=== PATIENT | female | born 1935 ===

== ENCOUNTER 2017-03-22 11:19 | Inpatient (IN) | payer MEDICARE, MEDICAID ==
[2017-03-22 11:25] VITALS: BMI 35.2
[2017-03-22 12:06] LABS: DRAW SITE RADIAL
[2017-03-22 12:12] LABS: BASO % 0.5 % (0.0-2.0); EOS # 0.1 K/uL (0.0-0.7); EOS % 1.3 % (0.0-4.0); HEMATOCRIT 33.4 % (34.0-47.0); LYMPH # 1.5 K/uL (1.0-4.3); LYMPH % 17.9 % (20.0-40.0); MEAN CELL VOLUME 103.7 fL (81.0-99.0); MEAN CORPUSCULAR HEMOGLOBIN 34.1 pg (27.0-31.0); MEAN CORPUSCULAR HGB CONC 32.8 g/dL (33.0-37.0); MEAN PLATELET VOLUME 8.4 fL (7.2-11.7); MONO # 0.6 K/uL (0.0-0.8); MONO % 7.1 % (0.0-10.0); RED CELL DISTRIBUTION WIDTH 12.8 % (11.5-14.5); WHITE BLOOD COUNT 8.2 K/uL (4.8-10.8)
[2017-03-22 12:20] LABS: INR 1.2
--- NOTE | 2017-03-22 12:20 | C.PDOC ---
History Of Present Illness Patient brought to ED by her sons for evaluation of SOB and nausea. Patient denies chest pain, but does admit to CP 3 days ago. History limited due to clinical condition and sons are poor historians. Time Seen by Provider: 03/22/17 11:36 Chief Complaint (Nursing): Abdominal Pain History Per: Patient, Family History/Exam Limitations: clinical condition Severity: Moderate Past Medical History Reviewed: Historical Data, Nursing Documentation, Vital Signs Vital Signs: Last Vital Signs Temp 98.1 F 03/26/17 00:00 Pulse 69 03/26/17 16:00 Resp 20 03/26/17 00:00 BP 156/71 H 03/26/17 10:22 Pulse Ox 98 03/26/17 00:00 - Medical History PMH: HTN Surgical History: Pacemaker Family History: States: No Known Family Hx - Social History Hx Alcohol Use: No Hx Substance Use: No - Immunization History Hx Tetanus Toxoid Vaccination: (UNK) Hx Influenza Vaccination: (UNK) Hx Pneumococcal Vaccination: (UNK) Review Of Systems Except As Marked, All Systems Reviewed And Found Negative. Cardiovascular: Positive for: Chest Pain. Negative for: Palpitations Respiratory: Positive for: Shortness of Breath, SOB with Excertion Gastrointestinal: Positive for: Nausea. Negative for: Abdominal Pain Genitourinary: Negative for: Dysuria Physical Exam - Physical Exam Appears: Non-toxic, In Acute Distress (in moderate respiratory distress) Skin: Warm, Dry Oral Mucosa: Moist Cardiovascular: Rhythm Regular Respiratory: Accessory Muscle Use (mild to moderate), Rales (diffuse rales B/L ) , No Rhonchi, No Wheezing Gastrointestinal/Abdominal: Normal Exam, Bowel Sounds, Soft, No Tenderness Extremity: Pedal Edema (+2 pitting edema B/L LEs), No Calf Tenderness Pulses: Left Dorsalis Pedis: Normal, Right Dorsalis Pedis: Normal ED Course And Treatment - Laboratory Results Result Diagrams: 03/26/17 14:14 03/26/17 14:14 ECG: Interpreted By Me, Viewed By Me (atrial paced rhythm 80 bpm, left axis deviation, no acute ST/T wave changes) ECG Interpretation: Abnormal O2 Sat by Pulse Oximetry: 78 (RA) Pulse Ox Interpretation: Abnormal - Radiology CXR: Interpreted by Me, Viewed By Me (B/L pulmonary vascular congestion, AICD in place) Progress Note: Patient placed on Bipap emergently, and ABG drawn by me. Blood work, CXR, EKG, UA ordered. Patient given SL nitroglycerin and IV Lasix. Reevaluation Time: 12:00 Reassessment Condition: Improved (Patient reassessed, is resting comfortably and states her breathing is better. Currently on Bipap, Pox 95% on FiO2 40%. No current accessory muscle use, (+) rales B/L. Small amount duiresis- approx 30ml urine.) - Physician Consult Information Physician Contacted: Jd Werner Outcome Of Conversation: Discussed patient with Dr. Werner, agrees with hospitalist admission for chf exacerbation, dyspnea. PMD Dr. Mathews, Cardioloy Dr. Gibbs. Repeat ABG pending. Disposition - Disposition Disposition: HOSPITALIZED Disposition Time: 13:24 Condition: FAIR - Clinical Impression Clinical Impression: CHF exacerbation, Dyspnea Decision To Admit - Pt Status Changed To: Hospital Disposition Of: Inpatient - Admit Certification Admit to Inpatient:: After my assessment, the patient will require hospitalization for at least two midnights. This is because of the severity of symptoms shown, intensity of services needed, and/or the medical risk in this patient being treated as an outpatient. - InPatient: Physician Admission Certification:: see notes - . Bed Request Type: Telemetry Admitting Physician: Jd Werner Patient Diagnosis: CHF exacerbation, Dyspnea
[2017-03-22 12:30] LABS: POTASSIUM 4.9 mmol/L (3.6-5.2)
[2017-03-22 12:32] LABS: BILIRUBIN,TOTAL 0.9 mg/dL (0.2-1.3)
[2017-03-22 12:33] LABS: ALB/GLOB RATIO 0.9 (1.0-2.1); CALCIUM 9.1 mg/dl (8.6-10.4); TOTAL PROTEIN 6.9 g/dL (6.3-8.3)
[2017-03-22 12:44] LABS: TROPONIN I 0.048 ng/mL (0.00-0.120)
[2017-03-22 14:02] LABS: THYROID STIMULATING HORMONE 4.69 mIU/L (0.46-4.68)
--- NOTE | 2017-03-22 14:09 | RAD ---
PROCEDURE: CHEST RADIOGRAPH, 1 VIEW HISTORY: SOB COMPARISON: None available. FINDINGS: LUNGS: Perihilar bronchovascular marking prominence is most conspicuous in the left perihilar location. Left perihilar additional parenchymal pathology is not excluded. The infrahilar bronchovascular markings are also likely prominent. Very venous congestion is inferred. Bilateral pleural effusions inferred bibasilar compressive atelectasis is noted. Of course, underlying bibasilar concomitant infiltrates are not excluded. There are several AICD like leads in place a discrete the battery pack is not visualized on this exam. Coalescing/coiling leads are seen projecting of the left mid to lower lung zone. PLEURA: Bilateral pleural effusion in the right is 1/4 to 1/3 of the height of the right hemithorax that on the left is approximately 1/2 the height of the left hemithorax. CARDIOVASCULAR: Cardiomegaly OSSEOUS STRUCTURES: No significant abnormalities. VISUALIZED UPPER ABDOMEN: Normal. OTHER FINDINGS: IMPRESSION: Cardiomegaly with pulmonary venous congestion/a bilateral pleural effusions findings consistent with congestive heart failure. Other findings as above. Correlate clinically and follow-up recommended
[2017-03-22 14:18] LABS: ABG ALLEN TEST POS; ARTERIAL BLOOD HGB O2 SAT 95.1 % (95.0-98.0); CARBOXYHEMOGLOBIN 2.6 % (0.5-1.5); DRAW SITE RRA; HHB 1.6 % (0.0-5.0); METHEMOGLOBIN 0.7 % (0.0-3.0)
[2017-03-22] MEDS ORDERED: Iodixanol 320 MG/ML 100 ML BOTTLE IV ONE (16:27)
[2017-03-22] MEDS ORDERED: (Novolin R) Insulin Human Regular 100 units/ml vial ONE (17:55)
[2017-03-22] MEDS: (Novolin R) Insulin Human Regular 100 units/ml vial SC SCH ×2 (17:58→21:29)
--- NOTE | 2017-03-22 17:59 | CT ---
CTA chest PE protocol Indication: Shortness of breath Technique: Contiguous axial images were obtained through the chest with intravenous contrast enhancement. Sagittal and coronal reconstructions were generated and reviewed. This CT exam was performed using 1 or more of the falling dose reduction techniques: Automated exposure control, adjustment of the MAA and/or kV according to patient size, and/or use of iterative reconstruction technique. IV Contrast: 100 cc Visipaque 320 Radiation dose (DLP): 488.00 MGy-cm. Comparison: Chest x-ray performed 03/22/17 Findings: Visualized portions of the inferior thyroid gland heterogeneous, enlarged, and nodular. The mediastinal and hilar vascular structures appear within normal limits. Cardiomegaly. Trace pericardial effusion. Three lead AICD. Pacer pack resides within the left upper quadrant seen on comb capper view. No large central or segmental pulmonary embolus evident. Moderate right and small left pleural effusions and associated consolidations. No pneumothorax. Small hiatal hernia. Limited visualized portions of the upper abdomen appear grossly unremarkable. Degenerative changes. Impression: Heterogeneous, enlarged, and nodular appearance of the included portions inferior thyroid gland. Recommend dedicated thyroid ultrasound for further evaluation. Cardiomegaly. Trace pericardial effusion. Three lead AICD. Pacer pack resides within the left upper quadrant seen on comb capper view. No large central or segmental pulmonary embolus evident. Moderate right and small left pleural effusions and associated consolidations.
--- NOTE | 2017-03-22 18:01 | CP.PCM.HP ---
<Vinod Mireles - Last Filed: 03/22/17 21:20> History of Present Illness - History of Present Illness History of Present Illness: CC : Shortness of breath, abdominal pain and nausea HPI: Patient is a 82 year old female with Pmhx of dilated cardimyopathy, CHF, HTN, DM, hyperthyroidism who presents to the ED with complaints of abdominal pain, shortness of breath and nausea that started this morning. Patient's son reports that patient took her morning medications but thereafter vomited due to difficulty breathing. Patient reports that she had been experiencing intermittent chest pain 3-4 days prior to this episode, rating the pain an 8/ 10. Patient admits to orthopnea, nocturnal cough, fatigue, chest pain, nausea, vomiting, but denies fever, chills, diarrhea, constipation, recent travels, recent sickness. PMD: Dr. Mathews Manager Planning: Dr. Gibbs PMHx: Dilated cardiomyopathy, HTN, CHF, DM, hyperthyroidism PSHx: Pacemaker FHx:None Medications: * Febuxostat 40mg PO daily * Coreg 12.5 mg PO daily * Furosemide 40mg PO daily * Aspirin 81mg po daily * Methimazole 10mg PO daily * Entresto 1 TAB PO BID * Januvia 100mg PO daily * Glimepiride 4mg PO daily Allergies: Penicillin Social Hx: Lives with son, former smoker (1-2 cigarettes per day 50 years ago), denies ETOH and illicit drug use Medications given in the ER: Furosemide 40mg IV stat and Pepcid 20mg IV stat Present on Admission - Present on Admission Any Indicators Present on Admission: No Review of Systems - Review of Systems Systems not reviewed;Unavailable: Respiratory Distress - Constitutional Constitutional: Fatigue, Weakness. absent: Chills, Fever, Headache - EENT Eyes: absent: Blurred Vision, Change in Vision Nose/Mouth/Throat: absent: Nasal Congestion - Cardiovascular Cardiovascular: Chest Pain, Dyspnea on Exertion, Orthopnea, Palpitations, Paroxysmal Nocturnal Dyspnea. absent: Edema, Leg Edema - Respiratory Respiratory: Cough, Dyspnea, Dyspnea on Exertion, Chest Congestion. absent: Hemoptysis - Gastrointestinal Gastrointestinal: Nausea, Vomiting. absent: Diarrhea - Genitourinary Genitourinary: absent: Pyuria, Urinary Frequency, Urinary Urgency - Musculoskeletal Musculoskeletal: absent: Muscle Cramps, Muscle Weakness - Neurological Neurological: Weakness. absent: Dizziness, Headaches - Endocrine Endocrine: Fatigue, Palpitations Past Patient History - Past Social History Smoking Status: Former Smoker - CARDIAC Hx Hypertension: Yes Hx Pacemaker: Yes - PSYCHIATRIC Hx Substance Use: No - SURGICAL HISTORY Other/Comment: Pacemaker - ANESTHESIA Hx Anesthesia: Yes Hx Anesthesia Reactions: No Meds Allergies/Adverse Reactions: Allergies Allergy/AdvReac Type Severity Reaction Status Date / Time Penicillins Allergy Verified 03/22/17 11:23 Physical Exam - Constitutional Appears: No Acute Distress - Head Exam Head Exam: NORMAL INSPECTION, NORMOCEPHALIC - Eye Exam Eye Exam: EOMI, Normal appearance - ENT Exam ENT Exam: Mucous Membranes Moist, Normal Exam - Respiratory Exam Respiratory Exam: Rales, Wheezes - Cardiovascular Exam Cardiovascular Exam: REGULAR RHYTHM, +S1, +S2 - GI/Abdominal Exam GI & Abdominal Exam: Normal Bowel Sounds, Soft - Extremities Exam Extremities exam: Positive for: normal capillary refill, normal inspection. Negative for: pedal edema - Neurological Exam Neurological exam: Alert - Psychiatric Exam Psychiatric exam: Normal Affect, Normal Mood - Skin Skin Exam: Dry, Normal Color, Warm Results - Vital Signs Recent Vital Signs: Last Vital Signs Temp 97.6 F 03/22/17 13:16 Pulse 70 03/22/17 14:51 Resp 16 03/22/17 14:51 BP 156/66 H 03/22/17 14:52 Pulse Ox 97 03/22/17 14:51 - Labs Result Diagrams: 03/22/17 12:00 03/22/17 12:00 Labs: Laboratory Results - last 24 hr 03/22/17 03/22/17 14:14 17:50 Puncture Site Rra pCO2 60 H pO2 82 HCO3 25.9 ABG pH 7.29 L ABG Total CO2 30.7 H ABG O2 Saturation 98.3 H ABG Base Excess 1.3 ABG Hemoglobin 10.8 L ABG Carboxyhemoglobin 2.6 H POC ABG HHb (Measured) 1.6 ABG Methemoglobin 0.7 Maurizio Test Pos A-a O2 Difference 128.0 Respiratory Index 1.6 Hgb O2 Saturation 95.1 FiO2 40.0 Inspiratory BiPAP 12 Expiratory BiPAP 6 POC Glucose (mg/dL) 154 H Assessment & Plan (1) Acute congestive heart failure Assessment and Plan: Manager Planning, Dr. Grupo Marquez consulted --> Help appreciated F/u Echocardiogram Chest X-ray: Cardiomegaly with pulmonary venous congestion/ bilateral pleural effusions Furosemide 60mg IV Q12H Bipap: 08/29 BNP: 15,1000 SUE 1 (Negative); SUE 2 ( Positive at 0.2190); F/u SUE 3 Furosemide 60mg IV Q12H Weigh daily Monitor Input and output Low salt diet Status: Acute (2) Shortness of breath Assessment and Plan: Manager Planning, Dr. Grupo Marquez consulted --> Help appreciated Chest X-ray: Cardiomegaly with pulmonary venous congestion/ bilateral pleural effusions CT chest to r/o PE: Heterogenous, enlarged and nodular appearance of the included portions inferior thyroid gland. Moderate right and small left pleural effusions and associated consolidation. CT abdomen and pelvis: No significant acute findings f/u Venous duplex scan B/L : F/U echocardiogram Furosemide 60mg IV Q12H Bipap: 08/29 Status: Acute (3) Dilated cardiomyopathy Assessment and Plan: Manager Planning, Dr. Grupo Marquez consulted --> Help appreciated F/u Echocardiogram Status: Chronic (4) HTN (hypertension) Assessment and Plan: Lisinopril 2.5mg PO daily Status: Chronic (5) Diabetes mellitus Assessment and Plan: Insulin sliding Scale Accuchecks Low carbohydrate diet F/U HgbA1C Status: Chronic (6) Hyperthyroidism Assessment and Plan: Methimazole 10mg Po daily F/u TSH, free T4 Status: Chronic (7) Prophylactic measure Assessment and Plan: Pepcid 20mg PO BID Lovenox 68mg SC Q12H SCD Status: Acute <Jd Werner H - Last Filed: 03/23/17 07:52> Results - Vital Signs Recent Vital Signs: Last Vital Signs Temp 97.6 F 03/23/17 04:00 Pulse 71 03/23/17 06:01 Resp 20 03/23/17 04:00 BP 160/69 H 03/23/17 04:00 Pulse Ox 96 03/23/17 04:00 - Labs Result Diagrams: 03/23/17 06:18 03/22/17 12:00 Labs: Laboratory Results - last 24 hr 03/22/17 03/22/17 03/22/17 14:14 17:50 18:42 WBC RBC Hgb Hct MCV MCH MCHC RDW Plt Count MPV Neut % (Auto) Lymph % (Auto) [place] % (Auto) Eos % (Auto) Baso % (Auto) Neut # Lymph # [place] # Eos # Baso # Puncture Site Rra pCO2 60 H pO2 82 HCO3 25.9 ABG pH 7.29 L ABG Total CO2 30.7 H ABG O2 Saturation 98.3 H ABG Base Excess 1.3 ABG Hemoglobin 10.8 L ABG Carboxyhemoglobin 2.6 H POC ABG HHb (Measured) 1.6 ABG Methemoglobin 0.7 Maurizio Test Pos A-a O2 Difference 128.0 Respiratory Index 1.6 Hgb O2 Saturation 95.1 FiO2 40.0 Inspiratory BiPAP 12 Expiratory BiPAP 6 POC Glucose (mg/dL) 154 H Total Creatine Kinase 38 CK-MB (Mass) 1.74 Troponin I, Quant 0.2190 H* 03/22/17 03/23/17 03/23/17 21:11 00:30 06:17 WBC RBC Hgb Hct MCV MCH MCHC RDW Plt Count MPV Neut % (Auto) Lymph % (Auto) [place] % (Auto) Eos % (Auto) Baso % (Auto) Neut # Lymph # [place] # Eos # Baso # Puncture Site pCO2 pO2 HCO3 ABG pH ABG Total CO2 ABG O2 Saturation ABG Base Excess ABG Hemoglobin ABG Carboxyhemoglobin POC ABG HHb (Measured) ABG Methemoglobin Maurizio Test A-a O2 Difference Respiratory Index Hgb O2 Saturation FiO2 Inspiratory BiPAP Expiratory BiPAP POC Glucose (mg/dL) 140 H 108 Total Creatine Kinase 33 CK-MB (Mass) 1.46 Troponin I, Quant 0.1600 H* 03/23/17 06:18 WBC 6.9 RBC 3.13 L Hgb 10.6 L Hct 32.4 L MCV 103.6 H MCH 33.9 H MCHC 32.7 L RDW 12.6 Plt Count 162 MPV 8.4 Neut % (Auto) 75.0 Lymph % (Auto) 9.6 L [place] % (Auto) 13.4 H Eos % (Auto) 1.7 Baso % (Auto) 0.3 Neut # 5.2 Lymph # 0.7 L [place] # 0.9 H Eos # 0.1 Baso # 0.0 Puncture Site pCO2 pO2 HCO3 ABG pH ABG Total CO2 ABG O2 Saturation ABG Base Excess ABG Hemoglobin ABG Carboxyhemoglobin POC ABG HHb (Measured) ABG Methemoglobin Maurizio Test A-a O2 Difference Respiratory Index Hgb O2 Saturation FiO2 Inspiratory BiPAP Expiratory BiPAP POC Glucose (mg/dL) Total Creatine Kinase CK-MB (Mass) Troponin I, Quant Attending/Attestation - Attestation I have personally seen and examined this patient.: Yes I have fully participated in the care of the patient.: Yes I have reviewed all pertinent clinical information: Yes Notes (Text): Medical attending: Patient was seen and examined by me, agrees the above note by medical photographer. The patient was seen in ER bed 12 with the medical photographer. She was awake and alert she was following some commands and answering questions. Her family members were present and helped with translation. The family explained to me that she has not been walking for about a month now according to the family the patient has some sort of cancer they think it's a lung cancer that the patient has opted did not have any treatment for. Per review of the chest x-ray she has a lot of venous congestion, she also has AICD which suggests that she probably has a low ejection fraction as well from what I understand her leaf sucker operator does not come to [facility]. I tried to reach out to her PMD, Dr. Mathews who the office explains is currently not available. On exam she does have some bilateral Rales and rhonchi it's particularly at the bases of the lungs, she also has this palpable mass left upper quadrant of her abdomen this is surgical scar right on top of that mass. She doesn't have any tenderness there So because the shortness of breath and reports of chest pain earlier before she came to the hospital were negative chest abdomen and pelvis with contrast study to assess for potential pulmonary embolism and/or some type of malignancy that' s contributing to the venous congestion. Also this may give us more information with regards to the palpable abdominal mass on exam The patient will be on Lasix IV, tomorrow if she's feeling better will add back on the beta zoila. She needs to be on a low dose GREGORY inhibitor, statin, aspirin as well. We'll watch her on telemetry. She will need a repeat chest x- ray in the morning to see if there is any improvement with Lasix thank you Jd Werner
--- NOTE | 2017-03-22 18:26 | CT ---
PROCEDURE: CT Abdomen and Pelvis with contrast HISTORY: CHF exacerbation, dyspnea COMPARISON: None. TECHNIQUE: Contrast dose: 90 cc Omnipaque 300 Radiation dose: Total exam DLP = mGy-cm. This CT exam was performed using one or more of the following dose reduction techniques: Automated exposure control, adjustment of the mA and/or kV according to patient size, and/or use of iterative reconstruction technique. FINDINGS: LOWER THORAX: Bilateral pleural effusions and compressive atelectasis better visualized on the recent CT angiogram ( March 22, 2017.) small hiatal hernia also identified. LIVER: Unremarkable. No gross lesion or ductal dilatation. GALLBLADDER AND BILE DUCTS: Unremarkable. PANCREAS: Unremarkable. No gross lesion or ductal dilatation. SPLEEN: Unremarkable. ADRENALS: Unremarkable. No mass. KIDNEYS AND URETERS: Unremarkable. No hydronephrosis. No solid mass. Incidental finding(s): Simple cyst upper pole right kidney 12 x 26 mm. VASCULATURE: Unremarkable. No aortic aneurysm. BOWEL: Unremarkable. No obstruction. No gross mural thickening. APPENDIX: Normal appendix. PERITONEUM: Unremarkable. No free fluid. No free air. LYMPH NODES: Unremarkable. No enlarged lymph nodes. BLADDER: Air identified within the urinary bladder likely related to instrumentation. There are no abnormalities to suggest vesico enteric or vesico vaginal fistula. REPRODUCTIVE: Partially calcified, a expected appearance postmenopausal uterus. BONES: No acute fracture. Scoliosis, secondary degenerative change at multiple levels. OTHER FINDINGS: Rectus muscle/anterior abdominal wall hernia. The hernia contains fat only without evidence of bowel within the hernia sac. IMPRESSION: No significant or acute findings to account for/ related to the clinical presentation. Additional benign and/or incidental findings described above.
[2017-03-22] MEDS: Enoxaparin 80 mg Syringe SC SCH (21:39)
[2017-03-23 06:36] LABS: BASO % 0.3 % (0.0-2.0); EOS # 0.1 K/uL (0.0-0.7); EOS % 1.7 % (0.0-4.0); HEMATOCRIT 32.4 % (34.0-47.0); LYMPH # 0.7 K/uL (1.0-4.3); LYMPH % 9.6 % (20.0-40.0); MEAN CELL VOLUME 103.6 fL (81.0-99.0); MEAN CORPUSCULAR HEMOGLOBIN 33.9 pg (27.0-31.0); MEAN CORPUSCULAR HGB CONC 32.7 g/dL (33.0-37.0); MEAN PLATELET VOLUME 8.4 fL (7.2-11.7); MONO # 0.9 K/uL (0.0-0.8); MONO % 13.4 % (0.0-10.0); PLATELET COUNT 162 K/uL (130-400); RED CELL DISTRIBUTION WIDTH 12.6 % (11.5-14.5); WHITE BLOOD COUNT 6.9 K/uL (4.8-10.8)
[2017-03-23 08:02] LABS: THYROID STIMULATING HORMONE 3.76 mIU/L (0.46-4.68)
[2017-03-23 08:04] LABS: BILIRUBIN,TOTAL 0.9 mg/dL (0.2-1.3)
[2017-03-23 08:05] LABS: ALB/GLOB RATIO 0.9 (1.0-2.1); CALCIUM 8.7 mg/dl (8.6-10.4); PHOSPHOROUS 4.6 mg/dL (2.5-4.5); TOTAL PROTEIN 6.4 g/dL (6.3-8.3)
[2017-03-23] MEDS: (Novolin R) Insulin Human Regular 100 units/ml vial SC SCH ×4 (08:05→21:52)
[2017-03-23 08:06] LABS: MAGNESIUM 1.4 mg/dL (1.6-2.3)
--- NOTE | 2017-03-23 08:09 | CP.PCM.CON ---
History of Present Illness - History of Present Illness History of Present Illness: I was asked to evaluate patient by Hospitalist service. [facility] is Dr. Gibbs. Patient is a 82 year old male with history of HTN, hypercholesterolemia, dialted cardiomyopathy s/p AICD who presents with dyspnea. The patient states symptoms began about 3 days ago. She has noted gradual progressive dyspnea as well as cough. The patient developed abdominal pain. The patient is noted to have markedly elevated pro BNP. She is currently on BiPAP. She denies chest pain or dyspnea. Review of Systems - Constitutional Constitutional: absent: As Per HPI, Anorexia, Chills, Daytime Sleepiness, Excessive Sweating, Fatigue, Fever, Frequent Falls, Headache, Increased Appetite , Lethargy, Malaise, Night Sweats, Snoring, Sleep Apnea, Weight Gain, Weight Loss, Weakness, Other - EENT Eyes: absent: As Per HPI, Blind Spots, Blurred Vision, Change in Vision, Decreased Night Vision, Diplopia, Discharge, Dry Eye, Exophthalmos, Floaters, Irritation, Itchy Eyes, Loss of Peripheral Vision, Pain, Photophobia, Requires Corrective Lenses, Sees Flashes, Spots in Vision, Tunnel Vision, Other Visual Disturbances, Loss of Vision, Other Ears: absent: As Per HPI, Decreased Hearing, Ear Discharge, Ear Pain, Tinnitus, Abnormal Hearing, Disequilibrium, Dizziness, Other Nose/Mouth/Throat: absent: As Per HPI, Epistaxis, Nasal Congestion, Nasal Discharge, Nasal Obstruction, Nasal Trauma, Nose Pain, Post Nasal Drip, Sinus Pain, Sinus Pressure, Bleeding Gums, Change in Voice, Dental Pain, Dry Mouth, Dysphagia, Halitosis, Hoarsness, Lip Swelling, Mouth Lesions, Mouth Pain, Odynophagia, Sore Throat, Throat Swelling, Tongue Swelling, Facial Pain, Neck Pain, Neck Mass, Other - Breasts Breasts: absent: As Per HPI, Change in Shape, Mass, Pain, Nipple Discharge, Nipple Inversion, Skin Changes, Swelling, Other - Cardiovascular Cardiovascular: Dyspnea, Orthopnea - Respiratory Respiratory: Dyspnea - Gastrointestinal Gastrointestinal: absent: As Per HPI, Abdominal Pain, Belching, Bloating, Change in Bowel Habits, Change in Stool Character, Coffee Ground Emesis, Constipation, Cramping, Diarrhea, Dyspepsia, Dysphagia, Early Satiety, Excessive Flatus, Fecal Incontinence, Heartburn, Hematemesis, Hematochezia, Loose Stools, Melena, Nausea, Odynophagia, Temesmus, Vomiting, Other - Genitourinary Genitourinary: absent: As Per HPI, Change in Urinary Stream, Difficulty Urinating, Dysuria, Flank Pain, Hematuria, Pyuria, Nocturia, Urinary Incontinence, Urinary Frequency, Urinary Hesitance, Urinary Urgency, Voiding Freq/Small Amts, Freq UTI, Hx Renal/Bladder Calculi, Hx /Renal Surgery, Bladder Distension, Other - Musculoskeletal Musculoskeletal: Numbness - Integumentary Integumentary: absent: As Per HPI, Acne, Alopecia, Bleeding Lesions, Change in Hair, Change in Nails, Change in Pigmentation, Changing Lesions, Dry Skin, Erythema, Furuncle, Hirsutism, Lesions, New Lesions, Non-Healing Lesions, Photosensitivity, Pruritus, Rash, Skin Pain, Skin Ulcer, Sores, Striae, Swelling , Unusual Bruising, Wounds, Jaundice, Other - Neurological Neurological: absent: As Per HPI, Abnormal Gait, Abnormal Hearing, Abnormal Movements, Abnormal Speech, Behavioral Changes, Burning Sensations, Confusion, Convulsions, Disequilibrium, Dizziness, Numbness, Focal Weakness, Frequent Falls , Headaches, Lack of Coordination, Loss of Vision, Memory Loss, Paresthesias, Radicular Pain, Restless Legs, Sensory Deficit, Syncope, Tingling, Tremor, Vertigo, Weakness, Other Visual Disturbances, Other - Psychiatric Psychiatric: absent: As Per HPI, Abnormal Sleep Pattern, Anhedonia, Anxiety, Auditory Hallucinations, Behavioral Changes, Change in Appetite, Change in Libido, Confusion, Depression, Difficulty Concentrating, Hallucinations, Homicidal Ideation, Hopelessness, Irritability, Memory Loss, Mood Swings, Panic Attacks, Paranoia, Suicidal Ideation, Visual Hallucinations, Tactile Hallucinations, Other - Endocrine Endocrine: absent: As Per HPI, Change in Body Appearance, Change in Libido, Cold Intolorance, Deepening of Voice, Excessive Sweating, Fatigue, Flushing, Heat Intolorance, Increase in Ring/Shoe/Hat Size, Palpitations, Polydipsia, Polyphagia, Polyuria, Other - Hematologic/Lymphatic Hematologic: absent: As Per HPI, Easy Bleeding, Easy Bruising, Lymphadenopathy, Other Past Patient History - Past Medical History & Family History Past Medical History?: Yes - Past Social History Smoking Status: Former Smoker - CARDIAC Hx Hypertension: Yes Hx Pacemaker: Yes - PULMONARY Hx Respiratory Disorders: No - NEUROLOGICAL Hx Neurological Disorder: No Other/Comment: forgetful - HEENT Hx HEENT Problems: No Hx Deafness: Yes (left ear) - RENAL Hx Chronic Kidney Disease: No - ENDOCRINE/METABOLIC Hx Endocrine Disorders: No - HEMATOLOGICAL/ONCOLOGICAL Hx Blood Disorders: No - INTEGUMENTARY Hx Dermatological Problems: No - MUSCULOSKELETAL/RHEUMATOLOGICAL Hx Musculoskeletal Disorders: No Hx Falls: No - GASTROINTESTINAL Hx Gastrointestinal Disorders: No - GENITOURINARY/GYNECOLOGICAL Hx Genitourinary Disorders: No - PSYCHIATRIC Hx Substance Use: No - SURGICAL HISTORY Other/Comment: Pacemaker - ANESTHESIA Hx Anesthesia: Yes Hx Anesthesia Reactions: No Meds Allergies/Adverse Reactions: Allergies Allergy/AdvReac Type Severity Reaction Status Date / Time Penicillins Allergy Verified 03/22/17 11:23 - Medications Medications: Current Medications Aspirin (Aspirin Chewable) 81 mg PO DAILY [facility] Enoxaparin Sodium (Lovenox) 68 mg SC Q12H [facility] Last Admin: 03/22/17 21:39 Dose: 68 mg Famotidine (Pepcid) 20 mg PO BID [facility] Last Admin: 03/22/17 18:43 Dose: 20 mg Furosemide (Lasix) 60 mg IVP Q12H [facility] Insulin Human Regular (Novolin R) 0 unit SC ACHS [facility] PRN Reason: Protocol Last Admin: 03/23/17 08:05 Dose: Not Given Lisinopril (Zestril) 2.5 mg PO DAILY [facility] Methimazole (Tapazole) 10 mg PO DAILY [facility] Physical Exam - Constitutional Appears: Non-toxic - Head Exam Head Exam: NORMAL INSPECTION - Eye Exam Eye Exam: Normal appearance - ENT Exam ENT Exam: Mucous Membranes Moist - Neck Exam Neck exam: Positive for: Full Rom - Respiratory Exam Respiratory Exam: Decreased Breath Sounds, Rales - Cardiovascular Exam Cardiovascular Exam: REGULAR RHYTHM - GI/Abdominal Exam GI & Abdominal Exam: Normal Bowel Sounds - Rectal Exam Rectal Exam: Deferred - Extremities Exam Extremities exam: Positive for: pedal edema - Back Exam Back exam: NORMAL INSPECTION - Neurological Exam Neurological exam: Alert, Oriented x3 - Psychiatric Exam Psychiatric exam: Normal Affect - Skin Skin Exam: Normal Color Results - Vital Signs Recent Vital Signs: Last Vital Signs Temp 97.6 F 03/23/17 04:00 Pulse 71 03/23/17 06:01 Resp 20 03/23/17 04:00 BP 160/69 H 03/23/17 04:00 Pulse Ox 96 03/23/17 04:00 - Labs Result Diagrams: 03/23/17 06:18 03/22/17 12:00 Labs: Laboratory Results - last 24 hr 03/22/17 03/22/17 03/22/17 14:14 17:50 18:42 WBC RBC Hgb Hct MCV MCH MCHC RDW Plt Count MPV Neut % (Auto) Lymph % (Auto) [place] % (Auto) Eos % (Auto) Baso % (Auto) Neut # Lymph # [place] # Eos # Baso # Puncture Site Rra pCO2 60 H pO2 82 HCO3 25.9 ABG pH 7.29 L ABG Total CO2 30.7 H ABG O2 Saturation 98.3 H ABG Base Excess 1.3 ABG Hemoglobin 10.8 L ABG Carboxyhemoglobin 2.6 H POC ABG HHb (Measured) 1.6 ABG Methemoglobin 0.7 Maurizio Test Pos A-a O2 Difference 128.0 Respiratory Index 1.6 Hgb O2 Saturation 95.1 FiO2 40.0 Inspiratory BiPAP 12 Expiratory BiPAP 6 POC Glucose (mg/dL) 154 H Total Creatine Kinase 38 CK-MB (Mass) 1.74 Troponin I, Quant 0.2190 H* NT-Pro-B Natriuret Pep 03/22/17 03/23/17 03/23/17 21:11 00:30 06:17 WBC RBC Hgb Hct MCV MCH MCHC RDW Plt Count MPV Neut % (Auto) Lymph % (Auto) [place] % (Auto) Eos % (Auto) Baso % (Auto) Neut # Lymph # [place] # Eos # Baso # Puncture Site pCO2 pO2 HCO3 ABG pH ABG Total CO2 ABG O2 Saturation ABG Base Excess ABG Hemoglobin ABG Carboxyhemoglobin POC ABG HHb (Measured) ABG Methemoglobin Maurizio Test A-a O2 Difference Respiratory Index Hgb O2 Saturation FiO2 Inspiratory BiPAP Expiratory BiPAP POC Glucose (mg/dL) 140 H 108 Total Creatine Kinase 33 CK-MB (Mass) 1.46 Troponin I, Quant 0.1600 H* NT-Pro-B Natriuret Pep 03/23/17 03/23/17 06:18 06:18 WBC 6.9 RBC 3.13 L Hgb 10.6 L Hct 32.4 L MCV 103.6 H MCH 33.9 H MCHC 32.7 L RDW 12.6 Plt Count 162 MPV 8.4 Neut % (Auto) 75.0 Lymph % (Auto) 9.6 L [place] % (Auto) 13.4 H Eos % (Auto) 1.7 Baso % (Auto) 0.3 Neut # 5.2 Lymph # 0.7 L [place] # 0.9 H Eos # 0.1 Baso # 0.0 Puncture Site pCO2 pO2 HCO3 ABG pH ABG Total CO2 ABG O2 Saturation ABG Base Excess ABG Hemoglobin ABG Carboxyhemoglobin POC ABG HHb (Measured) ABG Methemoglobin Maurizio Test A-a O2 Difference Respiratory Index Hgb O2 Saturation FiO2 Inspiratory BiPAP Expiratory BiPAP POC Glucose (mg/dL) Total Creatine Kinase CK-MB (Mass) Troponin I, Quant NT-Pro-B Natriuret Pep 50607 H - EKG Data EKG Interpreted by: Myself Assessment & Plan (1) Systolic dysfunction with acute on chronic heart failure Assessment and Plan: I reviewed the CXR. patient will needimproved diuresis. continue lasix. titrate Coreg. check echocardiogram Status: Acute (2) Dilated cardiomyopathy Assessment and Plan: s/p AICD. Status: Chronic (3) HTN (hypertension) Assessment and Plan: needs improved blood pressure control. increase beta zoila, afterload reduction Status: Chronic
[2017-03-23 08:40] LABS: EOSINOPHIL 2 % (0-4); NEUTROPHIL 72 % (50-75); TOTAL CELLS COUNTED 100
[2017-03-23] MEDS: Enoxaparin 80 mg Syringe SC SCH ×2 (10:00→21:51)
--- NOTE | 2017-03-23 10:04 | CP.PCM.PN ---
<Vinod Mireles Charo - Last Filed: 03/23/17 17:22> Subjective - Date & Time of Evaluation Date of Evaluation: 03/23/17 Time of Evaluation: 09:40 - Subjective Subjective: Medicine Note (PGY1): Dr. Werner's Service Patient was seen and examined at bedside. Patient states that she is doing much better. Patient reports minimal shortness of breath and chest pain. Patient is tolerating diet and no longer experiencing nausea, vomiting, diarrhea, constipation, fever, chills. Patient can ambulate with minimal assistance. Patient was on her bipap machine at the time of the encounter and she was breathing well. Objective - Vital Signs/Intake and Output Vital Signs (last 24 hours): Temp Pulse Resp BP Pulse Ox 98.3 F 77 18 152/7 H 96 03/23/17 08:34 03/23/17 09:59 03/23/17 08:45 03/23/17 09:59 03/23/17 08:45 - Medications Medications: Current Medications Aspirin (Aspirin Chewable) 81 mg PO DAILY [facility] Last Admin: 03/23/17 10:00 Dose: 81 mg Enoxaparin Sodium (Lovenox) 68 mg SC Q12H [facility] Last Admin: 03/23/17 10:00 Dose: 68 mg Famotidine (Pepcid) 20 mg PO BID [facility] Last Admin: 03/23/17 10:00 Dose: 20 mg Furosemide (Lasix) 60 mg IVP Q12H [facility] Last Admin: 03/23/17 08:52 Dose: 60 mg Insulin Human Regular (Novolin R) 0 unit SC [facility] PRN Reason: Protocol Last Admin: 03/23/17 08:05 Dose: Not Given Lisinopril (Zestril) 2.5 mg PO DAILY [facility] Last Admin: 03/23/17 10:00 Dose: 2.5 mg Methimazole (Tapazole) 10 mg PO DAILY [facility] Last Admin: 03/23/17 10:00 Dose: 10 mg - Labs Labs: 03/23/17 06:18 03/23/17 06:18 PT 14.0 SECONDS (9.7-12.2) H 03/22/17 12:00 INR 1.2 03/22/17 12:00 APTT 28 SECONDS (21-34) 03/22/17 12:00 - Constitutional Appears: Well, No Acute Distress - Head Exam Head Exam: NORMAL INSPECTION, NORMOCEPHALIC - Eye Exam Eye Exam: EOMI, Normal appearance - ENT Exam ENT Exam: Mucous Membranes Moist, Normal Exam - Respiratory Exam Respiratory Exam: Clear to Ausculation Bilateral, Wheezes, NORMAL BREATHING PATTERN Additional comments: Minimal wheezing - Cardiovascular Exam Cardiovascular Exam: REGULAR RHYTHM, +S1, +S2 - GI/Abdominal Exam GI & Abdominal Exam: Soft, Normal Bowel Sounds - Neurological Exam Neurological Exam: Alert, Awake, Oriented x3 - Psychiatric Exam Psychiatric exam: Normal Affect, Normal Mood - Skin Skin Exam: Dry, Normal Color, Warm Assessment and Plan (1) Acute congestive heart failure Assessment & Plan: Improving Wire Stitcher Operator, Dr. Grupo Marquez consulted --> Help appreciated * As per cardiology: patient will need improved diuresis thus continue lasix, titrate Coreg and check echocardiogram Chest X-ray: Cardiomegaly with pulmonary venous congestion/bilateral pleural effusions Furosemide 60mg IV Q12H Bipap: 08/29 BNP: 15,1000 (03/22/17); 21,800 (03/23/17) SUE 1 (Negative); SUE 2 ( Positive at 0.2190); SUE 3 ( elevated at 0.1600) - --> Wire Stitcher Operator on board F/u Echocardiogram and F/U repeat chest x-ray Weigh daily Monitor Input and output Low salt diet Status: Acute (2) Shortness of breath Assessment & Plan: Improving Wire Stitcher Operator, Dr. Grupo Marquez consulted --> Help appreciated Chest X-ray: Cardiomegaly with pulmonary venous congestion/ bilateral pleural effusions CT chest to r/o PE: Heterogenous, enlarged and nodular appearance of the included portions inferior thyroid gland. Moderate right and small left pleural effusions and associated consolidation. CT abdomen and pelvis: No significant acute findings f/u Venous duplex scan B/L : Negative for DVT F/U echocardiogram Conitnue Furosemide 60mg IV Q12H Continue Bipap with setting of 08/29 as needed Status: Acute (3) Dilated cardiomyopathy Assessment & Plan: Wire Stitcher Operator, Dr. Grupo Marquez consulted --> Help appreciated Pending Echocardiogram Report Status: Chronic (4) HTN (hypertension) Assessment & Plan: Continue Lisinopril 2.5mg PO daily As per granulator ( Dr. Marquez): needs improved blood pressure control; increase beta zoila for afterload reduction Status: Chronic (5) Diabetes mellitus Assessment & Plan: HgbA1C: 7.0 Insulin sliding Scale Accuchecks Low carbohydrate diet Status: Chronic (6) Hyperthyroidism Assessment & Plan: TSH: 3.76, Free T4: 1.04 Methimazole 10mg Po daily Status: Chronic (7) Prophylactic measure Assessment & Plan: Pepcid 20mg PO BID Lovenox 68mg SC Q12H [facility] Status: Acute <Jd Werner H - Last Filed: 03/24/17 08:23> Objective - Vital Signs/Intake and Output Vital Signs (last 24 hours): Temp Pulse Resp BP Pulse Ox 98.1 F 67 20 129/79 96 03/23/17 23:10 03/24/17 03:20 03/23/17 23:10 03/23/17 23:10 03/23/17 23:10 Intake and Output: 03/24/17 03/24/17 06:59 18:59 Intake Total 350 Output Total 600 Balance -250 - Medications Medications: Current Medications Aspirin (Aspirin Chewable) 81 mg PO DAILY [facility] Last Admin: 03/23/17 10:00 Dose: 81 mg Enoxaparin Sodium (Lovenox) 68 mg SC Q12H [facility] Last Admin: 03/23/17 21:51 Dose: 68 mg Famotidine (Pepcid) 20 mg PO BID [facility] Last Admin: 03/23/17 17:53 Dose: 20 mg Furosemide (Lasix) 60 mg IVP Q12H [facility] Last Admin: 03/23/17 21:15 Dose: 60 mg Insulin Human Regular (Novolin R) 0 unit SC [facility] PRN Reason: Protocol Last Admin: 03/23/17 21:52 Dose: Not Given Lisinopril (Zestril) 2.5 mg PO DAILY [facility] Last Admin: 03/23/17 10:00 Dose: 2.5 mg Methimazole (Tapazole) 10 mg PO DAILY [facility] Last Admin: 03/23/17 10:00 Dose: 10 mg - Labs Labs: 03/24/17 07:21 03/23/17 06:18 PT 14.0 SECONDS (9.7-12.2) H 03/22/17 12:00 INR 1.2 03/22/17 12:00 APTT 28 SECONDS (21-34) 03/22/17 12:00 Attending/Attestation - Attestation I have personally seen and examined this patient.: Yes I have fully participated in the care of the patient.: Yes I have reviewed all pertinent clinical information, including history, physical exam and plan: Yes Notes (Text): Medical attending: Patient was seen and examined by me, agrees the above note by medical office supervisor. The patient had a family as well as extended family members in the room we came to see her. The patient was sitting up out of bed, she is feeling much better than when she came in. The family remarked that she looked much better to them as well. She was given Lasix overnight, I took a look at the new chest x-ray and to be priya reviewed did not look better than when I first saw her in the ER even though she says she feels better. A CAT scan was done it suggests that she may have a pleural effusion developing on the left-hand side. Give her additional Lasix and if there is no substantial improvement she may or may not need a thoracentesis of that one particular side. She is tolerating her diet quite well, we had her stand up and walk with us she does need some assistance at her side when she walks, probably she would benefit from a rolling walker for walking cane however she was able to walk all the way up to the nurses station and then walk back. I took a look at her telemetry during this time and she has as we documented before pacemaker it's 100% capture at this time Thank you so much, Jd Werner
--- NOTE | 2017-03-23 12:20 | RAD ---
HISTORY: Acute CHF COMPARISON: 03/22/2017 FINDINGS: LUNGS: Left perihilar opacity is noted. This may reflect hilar lymphadenopathy, or superimposed pulmonary consolidation. This most likely corresponds to left upper lobe consolidation seen on CT angio chest of the previous day. . Grossly unchanged. No other consolidation seen elsewhere. Linear scar/atelectasis at right base. Unremarkable right hilum. PLEURA: Probable small bilateral pleural effusion. CARDIOVASCULAR: AICD. OSSEOUS STRUCTURES: No significant abnormalities. VISUALIZED UPPER ABDOMEN: Normal. OTHER FINDINGS: None. IMPRESSION: Left perihilar/suprahilar opacity. Nonspecific. AICD. Probable small bilateral pleural effusion.
--- NOTE | 2017-03-23 15:23 | VASCLAB ---
PROCEDURE: Lower Extremity Venous Duplex Exam. HISTORY: Shortness of breath, legs edema PRIORS: None. TECHNIQUE: Bilateral common femoral, femoral, popliteal and posterior tibial, peroneal and great saphenous veins were evaluated. Flow was assessed with color Doppler, compressibility, assessment of phasic flow and augmentation response. Report prepared by Tal Kendrick, T FINDINGS: RIGHT: 1. Common Femoral Vein: 1.1. Compressibility - Fully compressible: Thrombus - None : Flow - Phasic: Augmentation -Normal: Reflux - None. 2. Femoral Vein: 2.1. Compressibility - Fully compressible: Thrombus - None : Flow - Phasic: Augmentation -Normal: Reflux - None. 3. Popliteal Vein: 3.1. Compressibility - Fully compressible: Thrombus - None : Flow - Phasic: Augmentation -Normal: Reflux - None. 4. Posterior Tibial Vein: 4.1. Compressibility - Fully compressible: Thrombus - None: Flow - Phasic: Augmentation -Normal: Reflux - None. 5. Peroneal Vein: 5.1. Compressibility - Fully compressible: Thrombus - None: Flow - Phasic: Augmentation -Normal: Reflux - None. 6. Great Saphenous Vein: 6.1. Compressibility - Fully compressible: Thrombus - None: Flow - Phasic: Augmentation - Normal: Reflux - None. LEFT: 1. Common Femoral Vein: 1.1. Compressibility - Fully compressible: Thrombus - None: Flow - Phasic: Augmentation -Normal: Reflux - None. 2. Femoral Vein: 2.1. Compressibility - Fully compressible: Thrombus - None: Flow - Phasic: Augmentation -Normal: Reflux - None. 3. Popliteal Vein: 3.1. Compressibility - Fully compressible: Thrombus - None : Flow - Phasic: Augmentation -Normal: Reflux - None. 4. Posterior Tibial Vein: 4.1. Compressibility - Fully compressible: Thrombus - None: Flow - Phasic: Augmentation -Normal: Reflux - None. 5. Peroneal Vein: 5.1. Compressibility - Fully compressible: Thrombus - None: Flow - Phasic: Augmentation -Normal: Reflux - None. 6. Great Saphenous Vein: 6.1. Compressibility - Fully compressible: Thrombus - None: Flow - Phasic: Augmentation - Normal: Reflux - None. OTHER FINDINGS: Right: None significant. Left: None significant. IMPRESSION: Right: No evidence of deep or superficial vein thrombosis of the right lower extremity. Normal valve function noted of the right side. Left: No evidence of deep or superficial vein thrombosis of the left lower extremity. Normal valve function noted of the left side.
[2017-03-23 15:47] VITALS: RESP 20
[2017-03-24 07:40] LABS: BASO % 0.3 % (0.0-2.0); EOS # 0.2 K/uL (0.0-0.7); HEMATOCRIT 29.3 % (34.0-47.0); LYMPH # 0.6 K/uL (1.0-4.3); LYMPH % 9.9 % (20.0-40.0); MEAN CELL VOLUME 103.2 fL (81.0-99.0); MEAN CORPUSCULAR HEMOGLOBIN 33.9 pg (27.0-31.0); MEAN CORPUSCULAR HGB CONC 32.9 g/dL (33.0-37.0); MEAN PLATELET VOLUME 8.2 fL (7.2-11.7); MONO # 0.8 K/uL (0.0-0.8); MONO % 13.8 % (0.0-10.0); PLATELET COUNT 151 K/uL (130-400); RED CELL DISTRIBUTION WIDTH 12.4 % (11.5-14.5); WHITE BLOOD COUNT 5.9 K/uL (4.8-10.8)
[2017-03-24 08:00] LABS: POTASSIUM 4.2 mmol/L (3.6-5.2)
[2017-03-24 08:02] LABS: ALB/GLOB RATIO 0.9 (1.0-2.1); BILIRUBIN,TOTAL 0.5 mg/dL (0.2-1.3)
[2017-03-24 08:03] LABS: CALCIUM 8.2 mg/dl (8.6-10.4); MAGNESIUM 1.4 mg/dL (1.6-2.3); PHOSPHOROUS 3.5 mg/dL (2.5-4.5)
[2017-03-24] MEDS: (Novolin R) Insulin Human Regular 100 units/ml vial SC SCH ×3 (08:21→22:21)
[2017-03-24 09:49] LABS: EOSINOPHIL 1 % (0-4); NEUTROPHIL 85 % (50-75); TOTAL CELLS COUNTED 100
[2017-03-24] MEDS: Enoxaparin 80 mg Syringe SC SCH ×2 (10:07→22:14)
--- NOTE | 2017-03-24 10:23 | RAD ---
HISTORY: Acute CHF COMPARISON: 03/23/2017. FINDINGS: LUNGS: The lungs are clear. There is bibasilar atelectasis/ scarring. PLEURA: No significant pleural effusion identified, no pneumothorax apparent. CARDIOVASCULAR: Normal. OSSEOUS STRUCTURES: No significant abnormalities. VISUALIZED UPPER ABDOMEN: Normal. OTHER FINDINGS: There is chronic elevation of the right hemidiaphragm. IMPRESSION: No acute findings.
[2017-03-25 07:59] LABS: BASO % 0.5 % (0.0-2.0); EOS # 0.2 K/uL (0.0-0.7); EOS % 5.1 % (0.0-4.0); LYMPH # 0.7 K/uL (1.0-4.3); LYMPH % 16.6 % (20.0-40.0); MEAN CORPUSCULAR HEMOGLOBIN 33.7 pg (27.0-31.0); MEAN CORPUSCULAR HGB CONC 32.4 g/dL (33.0-37.0); MEAN PLATELET VOLUME 8.4 fL (7.2-11.7); MONO # 0.6 K/uL (0.0-0.8); MONO % 12.7 % (0.0-10.0); NRBC % 0.1 % (0.0-2.0); RED CELL DISTRIBUTION WIDTH 12.5 % (11.5-14.5); WHITE BLOOD COUNT 4.3 K/uL (4.8-10.8)
[2017-03-25] MEDS: (Novolin R) Insulin Human Regular 100 units/ml vial SC SCH ×4 (08:00→21:14)
[2017-03-25 08:47] LABS: POTASSIUM 4.6 mmol/L (3.6-5.2)
[2017-03-25 08:49] LABS: BILIRUBIN,TOTAL 0.7 mg/dL (0.2-1.3)
[2017-03-25 08:50] LABS: ALB/GLOB RATIO 0.9 (1.0-2.1); CALCIUM 8.2 mg/dl (8.6-10.4); MAGNESIUM 1.6 mg/dL (1.6-2.3); PHOSPHOROUS 3.2 mg/dL (2.5-4.5); TOTAL PROTEIN 5.9 g/dL (6.3-8.3)
[2017-03-25] MEDS: Enoxaparin 80 mg Syringe SC SCH ×2 (11:10→21:13)
--- NOTE | 2017-03-25 11:10 | CP.PCM.PN ---
Subjective - Date & Time of Evaluation Date of Evaluation: 03/25/17 Time of Evaluation: 11:00 - Subjective Subjective: Patient was seen and examined by me. Patient reports feeling better. Family present. Patient reports feeling more than 50% improvement. She explains she is not short of breath at rest. Denied chest pain at rest. On telemetry HR is paced 66 bpm, 100% capture. Currently pending echo results. Will order CXRAY for tomorrow. Objective - Vital Signs/Intake and Output Vital Signs (last 24 hours): Temp Pulse Resp BP Pulse Ox 98.0 F 68 20 120/64 98 03/25/17 08:53 03/25/17 08:53 03/25/17 08:53 03/25/17 08:53 03/25/17 08:53 Intake and Output: 03/25/17 03/25/17 06:59 18:59 Intake Total 240 Balance 240 - Medications Medications: Current Medications Aspirin (Aspirin Chewable) 81 mg PO DAILY [facility] Last Admin: 03/24/17 10:08 Dose: 81 mg Carvedilol (Coreg) 3.125 mg PO BID [facility] Last Admin: 03/24/17 18:00 Dose: 3.125 mg Enoxaparin Sodium (Lovenox) 68 mg SC Q12H [facility] Last Admin: 03/24/17 22:14 Dose: 68 mg Famotidine (Pepcid) 20 mg PO BID [facility] Last Admin: 03/24/17 18:00 Dose: 20 mg Furosemide (Lasix) 20 mg IVP DAILY [facility] Last Admin: 03/24/17 18:00 Dose: Not Given Insulin Human Regular (Novolin R) 0 unit SC [facility] PRN Reason: Protocol Last Admin: 03/25/17 08:00 Dose: Not Given Lisinopril (Zestril) 2.5 mg PO DAILY [facility] Last Admin: 03/24/17 10:08 Dose: 2.5 mg Methimazole (Tapazole) 10 mg PO DAILY [facility] Last Admin: 03/24/17 10:08 Dose: 10 mg - Labs Labs: 03/25/17 07:47 03/25/17 07:47 PT 14.0 SECONDS (9.7-12.2) H 03/22/17 12:00 INR 1.2 03/22/17 12:00 APTT 28 SECONDS (21-34) 03/22/17 12:00 - Constitutional Appears: Well, Non-toxic, No Acute Distress - Head Exam Head Exam: NORMAL INSPECTION, NORMOCEPHALIC - Eye Exam Eye Exam: EOMI, Normal appearance - ENT Exam ENT Exam: Mucous Membranes Moist - Respiratory Exam Respiratory Exam: Clear to Ausculation Bilateral, NORMAL BREATHING PATTERN - Cardiovascular Exam Cardiovascular Exam: REGULAR RHYTHM - GI/Abdominal Exam GI & Abdominal Exam: Soft, Normal Bowel Sounds - Rectal Exam Rectal Exam: NORMAL INSPECTION - Neurological Exam Neurological Exam: Abnormal Gait, Alert, Awake, Oriented x3 - Psychiatric Exam Psychiatric exam: Normal Affect, Normal Mood - Skin Skin Exam: Normal Color, Warm Assessment and Plan - Assessment and Plan (Free Text) Assessment: Assessment and Plan (1) Acute congestive heart failure Assessment & Plan: 03/25: Patient reports feeling greater than 50% better now. Yesterday the lasix was decreased to 20 BID. She has a pacer/defibrillator the family explains that was installed left upper shoulder but it was later moved to her left upper quadrant of abdomen. Pending on the echo at this time. Maybe can be discharged soon if echo is ok. There were borderline positive troponins, so on lovenox SQ BID. Increase Coreg today 03/24: Improving Area Forester, Dr. Grupo Marquez consulted --> Help appreciated * As per cardiology: patient will need improved diuresis thus continue lasix, titrate Coreg and check echocardiogram Chest X-ray: Cardiomegaly with pulmonary venous congestion/bilateral pleural effusions Furosemide 60mg IV Q12H Bipap: 08/29 BNP: 15,1000 (03/22/17); 21,800 (03/23/17) SUE 1 (Negative); SUE 2 ( Positive at 0.2190); SUE 3 ( elevated at 0.1600) - --> Area Forester on board F/u Echocardiogram and F/U repeat chest x-ray Weigh daily Monitor Input and output Low salt diet (2) Moderate Pleural effusion Assessment & Plan: 03/25: Reapeat the CXRAY tomorrow. She does report feeling better with diureses that she has been getting. Chest X-ray: Cardiomegaly with pulmonary venous congestion/ bilateral pleural effusions CT chest to r/o PE: Heterogenous, enlarged and nodular appearance of the included portions inferior thyroid gland. Moderate right and small left pleural effusions and associated consolidation. CT abdomen and pelvis: No significant acute findings f/u Venous duplex scan B/L : Negative for DVT F/U echocardiogram Continue Bipap with setting of 08/29 as needed (3) Dilated cardiomyopathy Assessment & Plan: 03/25: Continue with Coreg, Lisnopril, Statin. Area Forester, Dr. Grupo Marquez consulted --> Help appreciated Pending Echocardiogram Report Status: Chronic (4) HTN (hypertension) Assessment & Plan: Continue Lisinopril 2.5mg PO daily, Coreg 6.25 BID As per stamping die maker bench ( Dr. Marquez): needs improved blood pressure control; increase beta zoila for afterload reduction (5) Diabetes mellitus Assessment & Plan: HgbA1C: 7.0 Insulin sliding Scale Accuchecks Low carbohydrate diet (6) Hyperthyroidism Assessment & Plan: TSH: 3.76, Free T4: 1.04 Methimazole 10mg Po daily (7) Prophylactic measure Assessment & Plan: Pepcid 20mg PO BID Lovenox 68mg SC Q12H [facility]
--- NOTE | 2017-03-25 17:19 | CP.PCM.PN ---
Subjective - Date & Time of Evaluation Date of Evaluation: 03/25/17 Time of Evaluation: 12:30 - Subjective Subjective: patient feels better. no chest pain or dyspnea. Objective - Vital Signs/Intake and Output Vital Signs (last 24 hours): Temp Pulse Resp BP Pulse Ox 98 F 63 20 128/63 97 03/25/17 15:27 03/25/17 15:27 03/25/17 15:27 03/25/17 15:27 03/25/17 15:27 Intake and Output: 03/25/17 03/25/17 06:59 18:59 Intake Total 240 Balance 240 - Medications Medications: Current Medications Aspirin (Aspirin Chewable) 81 mg PO DAILY [facility] Last Admin: 03/25/17 11:13 Dose: 81 mg Carvedilol (Coreg) 6.25 mg PO BID [facility] Enoxaparin Sodium (Lovenox) 68 mg SC Q12H [facility] Last Admin: 03/25/17 11:10 Dose: 68 mg Famotidine (Pepcid) 20 mg PO BID [facility] Last Admin: 03/25/17 11:13 Dose: 20 mg Furosemide (Lasix) 20 mg IVP DAILY [facility] Last Admin: 03/25/17 11:07 Dose: 20 mg Insulin Human Regular (Novolin R) 0 unit SC [facility] PRN Reason: Protocol Last Admin: 03/25/17 12:38 Dose: 4 unit Lisinopril (Zestril) 2.5 mg PO DAILY [facility] Last Admin: 03/25/17 11:13 Dose: 2.5 mg Methimazole (Tapazole) 10 mg PO DAILY [facility] Last Admin: 03/25/17 11:12 Dose: 10 mg Rosuvastatin Calcium (Crestor) 5 mg PO [facility] - Labs Labs: 03/25/17 07:47 03/25/17 07:47 PT 14.0 SECONDS (9.7-12.2) H 03/22/17 12:00 INR 1.2 03/22/17 12:00 APTT 28 SECONDS (21-34) 03/22/17 12:00 - Constitutional Appears: Non-toxic - Head Exam Head Exam: NORMAL INSPECTION - Eye Exam Eye Exam: Normal appearance - ENT Exam ENT Exam: Mucous Membranes Moist - Neck Exam Neck Exam: Full ROM - Cardiovascular Exam Cardiovascular Exam: REGULAR RHYTHM - GI/Abdominal Exam GI & Abdominal Exam: Normal Bowel Sounds - Rectal Exam Rectal Exam: Deferred - Extremities Exam Extremities Exam: absent: Pedal Edema - Back Exam Back Exam: NORMAL INSPECTION - Neurological Exam Neurological Exam: Alert - Psychiatric Exam Psychiatric exam: Normal Affect - Skin Skin Exam: Normal Color Assessment and Plan (1) Systolic dysfunction with acute on chronic heart failure Assessment & Plan: improving. continue diuresis Status: Acute (2) Dilated cardiomyopathy Assessment & Plan: s/p AICD Status: Chronic (3) HTN (hypertension) Assessment & Plan: blood pressure control Status: Chronic
[2017-03-26 01:26] VITALS: TEMP 98.1
--- NOTE | 2017-03-26 05:08 | CARD ---
APPROVED REPORT EXAM: Two-dimensional and M-mode echocardiogram with Doppler and color Doppler. Other Information Quality : Technically LimitedRhythm : INDICATION Dyspnea Congestive Heart Failure Surgery/Intervention Pacemaker: M-Mode DIMENSIONS Left Atrium (MM)3.71 (2.5-4.0cm)IVSd1.21 (0.7-1.1cm) Aortic Root3.44 (2.2-3.7cm)LVDd5.10 (4.0-5.6cm) Aortic Cusp Exc.1.80 (1.5-2.0cm)PWd1.25 (0.7-1.1cm) FS (%) 27 %LVDs3.71 (2.0-3.8cm) LVEF (%)53 (>50%) Aortic Valve AI P 1/2 [id number] Mitral Valve MV E Fxbylzal59.2cm/sMV A Czhpgjuq083.1cm/sE/A ratio0.4 TDI E/Lateral E'0.0E/Medial E'0.0 Tricuspid Valve TR Peak [id number]/sTR Peak Gr.[id number] <Conclusion> Limited study; advrsely affects interpretation Left ventricle: thickness: mild concentric thickeningl; size: normal; moderate to severe diffuse systolic dysfunction overall ejection fraction: 35-40%: diastolic filling pressures: normal Mitral valve: annulus: normal: leaflets: normal: excursion: normal; no significant trans-mitral gradient: mild incompetence: left atrium: normal Aortic valve: leaflets: normal: excursion: normal; no significant trans-aortic gradient: mild to moderate incompetence: aortic root: normal Right sided Structures: Linear density in RA ?catheter.pacing leads Pulmonary valve: normal; no significant incompetence; Tricuspid valve: normal; no significant incompetence: Intra-cardiac hemodynamics: pulmonary systolic pressures: 30.11 mmHgl; central venous pressures: normal No pericardial effusion
[2017-03-26] MEDS: (Novolin R) Insulin Human Regular 100 units/ml vial SC SCH ×2 (08:28→12:25)
[2017-03-26 10:22] VITALS: BP 156/71
--- NOTE | 2017-03-26 11:51 | CARD ---
APPROVED REPORT EKG Measurement Heart [id number] <Conclusion> Atrial-sensed ventricular-paced rhythm. prolonged QT interval. Abnormal ECG
--- NOTE | 2017-03-26 12:02 | CARD ---
APPROVED REPORT EKG Measurement Heart [id number] 122P [id number] <Conclusion> AV dual-paced rhythm Abnormal ECG
--- NOTE | 2017-03-26 13:59 | RAD ---
HISTORY: Acute CHF COMPARISON: 03/24/2017. FINDINGS: LUNGS: There is interval development of fluid in the minor fissure. There are low lung volumes. There is question of left suprahilar airspace disease. PLEURA: Suspect small pleural effusions. No pneumothorax. CARDIOVASCULAR: Stable. OSSEOUS STRUCTURES: No significant abnormalities. VISUALIZED UPPER ABDOMEN: Normal. OTHER FINDINGS: None. IMPRESSION: Question of left suprahilar airspace disease. Interval development of fluid in the horizontal fissure. Suspect bilateral pleural effusions.
--- NOTE | 2017-03-26 14:12 | CARD ---
APPROVED REPORT EKG Measurement Heart [id number] <Conclusion> Atrial-sensed ventricular-paced rhythm Abnormal ECG
[2017-03-26 14:30] LABS: BASO % 0.4 % (0.0-2.0); EOS # 0.2 K/uL (0.0-0.7); EOS % 3.5 % (0.0-4.0); HEMATOCRIT 29.9 % (34.0-47.0); LYMPH # 0.7 K/uL (1.0-4.3); LYMPH % 15.2 % (20.0-40.0); MEAN CELL VOLUME 103.9 fL (81.0-99.0); MEAN CORPUSCULAR HEMOGLOBIN 34.3 pg (27.0-31.0); MEAN PLATELET VOLUME 8.6 fL (7.2-11.7); MONO # 0.5 K/uL (0.0-0.8); MONO % 11.3 % (0.0-10.0); NRBC % 0.1 % (0.0-2.0); RED CELL DISTRIBUTION WIDTH 12.5 % (11.5-14.5); WHITE BLOOD COUNT 4.7 K/uL (4.8-10.8)
[2017-03-26 14:43] LABS: BILIRUBIN,TOTAL 0.7 mg/dL (0.2-1.3); POTASSIUM 5.2 mmol/L (3.6-5.2)
[2017-03-26 14:44] LABS: ALB/GLOB RATIO 0.9 (1.0-2.1); TOTAL PROTEIN 6.6 g/dL (6.3-8.3)
[2017-03-26 14:45] LABS: CALCIUM 8.6 mg/dl (8.6-10.4)
--- NOTE | 2017-03-26 16:11 | PCM.HF ---
Heart Failure Core Measure - Heart Failure Ejection Fraction: 40 % or Greater (ef >40%) GREGORY Inhibitor Prescribed: No Contraindication/Reason for not providing: on entresto Beta-Jan Prescribed: Carvedilol Angiotensin II Receptor Jan Prescribed: Yes Contraindication/Reason for not providing: on entresto AnticoagulationTherapy for Atrial Fibrillation/Atrialflutter: No Contraindication/Reason for not providing: not rx by md at this time Aldosterone Antagonist Prescribed: No Contraindication/Reason for not providing: not rx by md at this time Hydralazine Nitrate Prescribed: No Contraindication/Reason for not providing: not rx by md at this time Implantable Cardioverter Defibrillator Therapy: Yes Cardiac Resynchronization Therapy Prescribed: Yes - Follow up Will be discharged to: Home Follow Up Date (must be within 7 days from discharge): 03/29/17 Follow Up Time: 09:00
[2017-03-26 16:32] VITALS: PULSE 69
[2017-03-26 21:07] VITALS: O2SAT 78
--- NOTE | 2017-03-26 21:16 | CP.PCM.DIS ---
<Vinod Mireles E - Last Filed: 03/26/17 21:17> Provider - Provider Date of Admission: 03/22/17 13:24 Attending physician: Jd Werner DO Time Spent in preparation of Discharge (in minutes): 45 Diagnosis - Discharge Diagnosis (1) Acute congestive heart failure Status: Acute (2) Shortness of breath Status: Acute (3) Dilated cardiomyopathy Status: Chronic (4) HTN (hypertension) Status: Chronic (5) Diabetes mellitus Status: Chronic (6) Hyperthyroidism Status: Chronic (7) Prophylactic measure Status: Acute Hospital Course - Lab Results Lab Results: Most Recent Lab Values WBC 4.7 K/uL (4.8-10.8) L 03/26/17 14:14 RBC 2.88 Mil/uL (3.80-5.20) L 03/26/17 14:14 Hgb 9.9 g/dL (11.0-16.0) L 03/26/17 14:14 Hct 29.9 % (34.0-47.0) L 03/26/17 14:14 MCV 103.9 fL (81.0-99.0) H 03/26/17 14:14 MCH 34.3 pg (27.0-31.0) H 03/26/17 14:14 MCHC 33.0 g/dL (33.0-37.0) 03/26/17 14:14 RDW 12.5 % (11.5-14.5) 03/26/17 14:14 Plt Count 172 K/uL (130-400) 03/26/17 14:14 MPV 8.6 fL (7.2-11.7) 03/26/17 14:14 Neut % (Auto) 69.6 % (50.0-75.0) 03/26/17 14:14 Lymph % (Auto) 15.2 % (20.0-40.0) L 03/26/17 14:14 [place] % (Auto) 11.3 % (0.0-10.0) H 03/26/17 14:14 Eos % (Auto) 3.5 % (0.0-4.0) 03/26/17 14:14 Baso % (Auto) 0.4 % (0.0-2.0) 03/26/17 14:14 Neut # 3.3 K/uL (1.8-7.0) 03/26/17 14:14 Lymph # 0.7 K/uL (1.0-4.3) L 03/26/17 14:14 [place] # 0.5 K/uL (0.0-0.8) 03/26/17 14:14 Eos # 0.2 K/uL (0.0-0.7) 03/26/17 14:14 Baso # 0.0 K/uL (0.0-0.2) 03/26/17 14:14 Neutrophils % (Manual) 85 % (50-75) H 03/24/17 07:21 Band Neutrophils % 1 % (0-2) 03/24/17 07:21 Lymphocytes % (Manual) 11 % (20-40) L 03/24/17 07:21 Monocytes % (Manual) 2 % (0-10) 03/24/17 07:21 Eosinophils % (Manual) 1 % (0-4) 03/24/17 07:21 Platelet Estimate Normal (NORMAL) 03/24/17 07:21 Basophilic Stippling Slight 03/23/17 06:18 Macrocytosis (manual) Slight 03/24/17 07:21 PT 14.0 SECONDS (9.7-12.2) H 03/22/17 12:00 INR 1.2 03/22/17 12:00 APTT 28 SECONDS (21-34) 03/22/17 12:00 Puncture Site Rra 03/22/17 14:14 pCO2 60 mm/Hg (35-45) H 03/22/17 14:14 pO2 82 mm/Hg (80-100) 03/22/17 14:14 HCO3 25.9 mmol/L (21-28) 03/22/17 14:14 ABG pH 7.29 (7.35-7.45) L 03/22/17 14:14 ABG Total CO2 30.7 mmol/L (22-28) H 03/22/17 14:14 ABG O2 Saturation 98.3 % (95-98) H 03/22/17 14:14 ABG Base Excess 1.3 mmol/L (-2.0-3.0) 03/22/17 14:14 ABG Hemoglobin 10.8 g/dL (11.7-17.4) L 03/22/17 14:14 ABG Carboxyhemoglobin 2.6 % (0.5-1.5) H 03/22/17 14:14 POC ABG HHb (Measured) 1.6 % (0.0-5.0) 03/22/17 14:14 ABG Methemoglobin 0.7 % (0.0-3.0) 03/22/17 14:14 Maurizio Test Pos 03/22/17 14:14 ABG Potassium 0.9 mmol/L (3.6-5.2) L* 03/22/17 11:59 A-a O2 Difference 128.0 mm/Hg 03/22/17 14:14 Respiratory Index 1.6 03/22/17 14:14 Hgb O2 Saturation 95.1 % (95.0-98.0) 03/22/17 14:14 Sodium 156.0 mmol/l (132-148) H 03/22/17 11:59 Chloride 135.0 mmol/L (98-107) H 03/22/17 11:59 Glucose 53 mg/dl (65-105) L 03/22/17 11:59 Lactate 0.7 mmol/L (0.7-2.1) 03/22/17 11:59 FiO2 40.0 % 03/22/17 14:14 Inspiratory BiPAP 12 03/22/17 14:14 Expiratory BiPAP 6 03/22/17 14:14 Crit Value Called To Vera wilkins 03/22/17 11:59 Crit Value Called By Michelle 03/22/17 11:59 Crit Value Read Back Y 03/22/17 11:59 Blood Gas Notified Time 1206 03/22/17 11:59 Sodium 129 mmol/L (132-148) L 03/26/17 14:14 Potassium 5.2 mmol/L (3.6-5.2) 03/26/17 14:14 Chloride 91 mmol/L (98-107) L 03/26/17 14:14 Carbon Dioxide 31 mmol/L (22-30) H 03/26/17 14:14 Anion Gap 12 (10-20) 03/26/17 14:14 BUN 54 mg/dL (7-17) H 03/26/17 14:14 Creatinine 1.6 MG/DL (0.7-1.2) H 03/26/17 14:14 Est GFR ( Amer) 37 03/26/17 14:14 Est GFR (Non-Af Amer) 31 03/26/17 14:14 POC Glucose (mg/dL) 257 mg/dL (65-110) H 03/26/17 11:24 Random Glucose 191 mg/dL (65-105) H 03/26/17 14:14 Hemoglobin A1c 7.0 % (4.2-6.5) H 03/23/17 06:18 Calcium 8.6 mg/dl (8.6-10.4) 03/26/17 14:14 Phosphorus 3.2 mg/dL (2.5-4.5) 03/25/17 07:47 Magnesium 1.6 mg/dL (1.6-2.3) 03/25/17 07:47 Total Bilirubin 0.7 mg/dL (0.2-1.3) 03/26/17 14:14 AST 101 U/L (14-36) H 03/26/17 14:14 ALT 104 U/L (9-52) H 03/26/17 14:14 Alkaline Phosphatase 178 U/L (38-126) H 03/26/17 14:14 Total Creatine Kinase 33 U/L (30-135) 03/23/17 00:30 CK-MB (Mass) 1.46 ng/mL (0.0-3.38) 03/23/17 00:30 Troponin I 0.0480 ng/mL (0.00-0.120) 03/22/17 12:00 Troponin I, Quant 0.1600 ng/mL (0.00-0.120) H* 03/23/17 00:30 NT-Pro-B Natriuret Pep 5030 pg/mL (0-900) H 03/25/17 07:47 Total Protein 6.6 g/dL (6.3-8.3) 03/26/17 14:14 Albumin 3.1 g/dL (3.5-5.0) L 03/26/17 14:14 Globulin 3.4 gm/dL (2.2-3.9) 03/26/17 14:14 Albumin/Globulin Ratio 0.9 (1.0-2.1) L 03/26/17 14:14 Triglycerides 73 mg/dL (0-149) 03/23/17 06:18 Cholesterol 180 mg/dL (0-199) 03/23/17 06:18 LDL Cholesterol Direct 94 mg/dL (0-129) 03/23/17 06:18 HDL Cholesterol 54 mg/dL (30-70) 03/23/17 06:18 Lipase 55 U/L (23-300) 03/22/17 12:00 Free T4 1.04 ng/dL (0.78-2.19) 03/23/17 06:18 TSH 3rd Generation 3.76 mIU/L (0.46-4.68) 03/23/17 06:18 Arterial Blood Potassium 0.9 mmol/L (3.6-5.2) L* 03/22/17 11:59 - Hospital Course Hospital Course: As per admission: HPI: Patient is a 82 year old female with Pmhx of dilated cardimyopathy, CHF, HTN, DM , hyperthyroidism who presents to the ED with complaints of abdominal pain, shortness of breath and nausea that started this morning. Patient's son reports that patient took her morning medications but thereafter vomited due to difficulty breathing. Patient reports that she had been experiencing intermittent chest pain 3-4 days prior to this episode, rating the pain an 8/ 10. Patient admits to orthopnea, nocturnal cough, fatigue, chest pain, nausea, vomiting, but denies fever, chills, diarrhea, constipation, recent travels, recent sickness. Hospital Course: Patient is a 82 year old female with Pmhx of dilated cardimyopathy, CHF, HTN, DM , hyperthyroidism who presents to the ED with complaints of abdominal pain, shortness of breath and nausea with a BNP of 15,100. Patient's chest x-ray showing severe congestion. Patient was administered a CT scan of the chest to rule out PE and a Venous doppler scan to rule out a DVT, which showed: Heterogenous, enlarged and nodular appearance of the included portions inferior thyroid gland. Moderate right and small left pleural effusions and associated consolidation and negative for DVT, respectively. Patient was then admitted to the follow to medically managed by diuresis and the use of bipap machine. Wood Setter, Dr. Marquez was consulted due to patient's elevated cardiac enzymes, who recommended that patient should continue to be medically managed. Patient's echocardiogram on admission shows a 35-40% ejection. Patient started to improve and was able to ambulate with minimal assistance. Patient was discharge home today and she is to follow up with her primary care physician, her compliance coordinator and resume all her home medications. Patient was encouraged to ambulate more often at home This is a brief summary of events. For a complete course, refer to medical record. Discharge Exam - Head Exam Head Exam: NORMAL INSPECTION, NORMOCEPHALIC - Eye Exam Eye Exam: EOMI, Normal appearance - ENT Exam ENT Exam: Mucous Membranes Moist - Respiratory Exam Respiratory Exam: Clear to PA & Lateral, NORMAL BREATHING PATTERN - Cardiovascular Exam Cardiovascular Exam: REGULAR RHYTHM, +S1, +S2 - GI/Abdominal Exam GI & Abdominal Exam: Normal Bowel Sounds, Soft - Extremities Exam Extremities exam: normal capillary refill, normal inspection - Neurological Exam Neurological exam: Alert, Oriented x3 - Psychiatric Exam Psychiatric exam: Normal Affect, Normal Mood - Skin Skin Exam: Dry, Normal Color, Warm Discharge Plan - Follow Up Plan Condition: FAIR Disposition: HOME/ ROUTINE Instructions: Heart Failure (DC), Pacemaker (DC), Heart Healthy Diet (DC), Hyperthyroidism (DC), Diabetic Foot Care (DC), Diabetes Mellitus Type 2 in Adults (DC), Meal Planning with the Plate Method (DC), Hypertension (DC) Additional Instructions: Please discharge patient home as per Dr. Jewell Please resume all home medications and take as prescribed. Please follow up with your primary care physician, Dr. Mathews within one week Please follow up with your compliance coordinator physician, Dr. Gibbs within one week Please return to the hospital if symptoms return Instructions are explained to patient and patient understands and agrees. Referrals: Roly Mathews MD [Staff Provider] - Uzair Gibbs MD [Medical Doctor] - <Barrie Jewell - Last Filed: 03/27/17 10:28> Provider - Provider Date of Admission: 03/22/17 13:24 Attending physician: Jd Werner, DO Hospital Course - Lab Results Lab Results: Most Recent Lab Values WBC 4.7 K/uL (4.8-10.8) L 03/26/17 14:14 RBC 2.88 Mil/uL (3.80-5.20) L 03/26/17 14:14 Hgb 9.9 g/dL (11.0-16.0) L 03/26/17 14:14 Hct 29.9 % (34.0-47.0) L 03/26/17 14:14 MCV 103.9 fL (81.0-99.0) H 03/26/17 14:14 MCH 34.3 pg (27.0-31.0) H 03/26/17 14:14 MCHC 33.0 g/dL (33.0-37.0) 03/26/17 14:14 RDW 12.5 % (11.5-14.5) 03/26/17 14:14 Plt Count 172 K/uL (130-400) 03/26/17 14:14 MPV 8.6 fL (7.2-11.7) 03/26/17 14:14 Neut % (Auto) 69.6 % (50.0-75.0) 03/26/17 14:14 Lymph % (Auto) 15.2 % (20.0-40.0) L 03/26/17 14:14 [place] % (Auto) 11.3 % (0.0-10.0) H 03/26/17 14:14 Eos % (Auto) 3.5 % (0.0-4.0) 03/26/17 14:14 Baso % (Auto) 0.4 % (0.0-2.0) 03/26/17 14:14 Neut # 3.3 K/uL (1.8-7.0) 03/26/17 14:14 Lymph # 0.7 K/uL (1.0-4.3) L 03/26/17 14:14 [place] # 0.5 K/uL (0.0-0.8) 03/26/17 14:14 Eos # 0.2 K/uL (0.0-0.7) 03/26/17 14:14 Baso # 0.0 K/uL (0.0-0.2) 03/26/17 14:14 Neutrophils % (Manual) 85 % (50-75) H 03/24/17 07:21 Band Neutrophils % 1 % (0-2) 03/24/17 07:21 Lymphocytes % (Manual) 11 % (20-40) L 03/24/17 07:21 Monocytes % (Manual) 2 % (0-10) 03/24/17 07:21 Eosinophils % (Manual) 1 % (0-4) 03/24/17 07:21 Platelet Estimate Normal (NORMAL) 03/24/17 07:21 Basophilic Stippling Slight 03/23/17 06:18 Macrocytosis (manual) Slight 03/24/17 07:21 PT 14.0 SECONDS (9.7-12.2) H 03/22/17 12:00 INR 1.2 03/22/17 12:00 APTT 28 SECONDS (21-34) 03/22/17 12:00 Puncture Site Rra 03/22/17 14:14 pCO2 60 mm/Hg (35-45) H 03/22/17 14:14 pO2 82 mm/Hg (80-100) 03/22/17 14:14 HCO3 25.9 mmol/L (21-28) 03/22/17 14:14 ABG pH 7.29 (7.35-7.45) L 03/22/17 14:14 ABG Total CO2 30.7 mmol/L (22-28) H 03/22/17 14:14 ABG O2 Saturation 98.3 % (95-98) H 03/22/17 14:14 ABG Base Excess 1.3 mmol/L (-2.0-3.0) 03/22/17 14:14 ABG Hemoglobin 10.8 g/dL (11.7-17.4) L 03/22/17 14:14 ABG Carboxyhemoglobin 2.6 % (0.5-1.5) H 03/22/17 14:14 POC ABG HHb (Measured) 1.6 % (0.0-5.0) 03/22/17 14:14 ABG Methemoglobin 0.7 % (0.0-3.0) 03/22/17 14:14 Maurizio Test Pos 03/22/17 14:14 ABG Potassium 0.9 mmol/L (3.6-5.2) L* 03/22/17 11:59 A-a O2 Difference 128.0 mm/Hg 03/22/17 14:14 Respiratory Index 1.6 03/22/17 14:14 Hgb O2 Saturation 95.1 % (95.0-98.0) 03/22/17 14:14 Sodium 156.0 mmol/l (132-148) H 03/22/17 11:59 Chloride 135.0 mmol/L (98-107) H 03/22/17 11:59 Glucose 53 mg/dl (65-105) L 03/22/17 11:59 Lactate 0.7 mmol/L (0.7-2.1) 03/22/17 11:59 FiO2 40.0 % 03/22/17 14:14 Inspiratory BiPAP 12 03/22/17 14:14 Expiratory BiPAP 6 03/22/17 14:14 Crit Value Called To Vera wilkins 03/22/17 11:59 Crit Value Called By Michelle 03/22/17 11:59 Crit Value Read Back Y 03/22/17 11:59 Blood Gas Notified Time 1206 03/22/17 11:59 Sodium 129 mmol/L (132-148) L 03/26/17 14:14 Potassium 5.2 mmol/L (3.6-5.2) 03/26/17 14:14 Chloride 91 mmol/L (98-107) L 03/26/17 14:14 Carbon Dioxide 31 mmol/L (22-30) H 03/26/17 14:14 Anion Gap 12 (10-20) 03/26/17 14:14 BUN 54 mg/dL (7-17) H 03/26/17 14:14 Creatinine 1.6 MG/DL (0.7-1.2) H 03/26/17 14:14 Est GFR ( Amer) 37 03/26/17 14:14 Est GFR (Non-Af Amer) 31 03/26/17 14:14 POC Glucose (mg/dL) 257 mg/dL (65-110) H 03/26/17 11:24 Random Glucose 191 mg/dL (65-105) H 03/26/17 14:14 Hemoglobin A1c 7.0 % (4.2-6.5) H 03/23/17 06:18 Calcium 8.6 mg/dl (8.6-10.4) 03/26/17 14:14 Phosphorus 3.2 mg/dL (2.5-4.5) 03/25/17 07:47 Magnesium 1.6 mg/dL (1.6-2.3) 03/25/17 07:47 Total Bilirubin 0.7 mg/dL (0.2-1.3) 03/26/17 14:14 AST 101 U/L (14-36) H 03/26/17 14:14 ALT 104 U/L (9-52) H 03/26/17 14:14 Alkaline Phosphatase 178 U/L (38-126) H 03/26/17 14:14 Total Creatine Kinase 33 U/L (30-135) 03/23/17 00:30 CK-MB (Mass) 1.46 ng/mL (0.0-3.38) 03/23/17 00:30 Troponin I 0.0480 ng/mL (0.00-0.120) 03/22/17 12:00 Troponin I, Quant 0.1600 ng/mL (0.00-0.120) H* 03/23/17 00:30 NT-Pro-B Natriuret Pep 5030 pg/mL (0-900) H 03/25/17 07:47 Total Protein 6.6 g/dL (6.3-8.3) 03/26/17 14:14 Albumin 3.1 g/dL (3.5-5.0) L 03/26/17 14:14 Globulin 3.4 gm/dL (2.2-3.9) 03/26/17 14:14 Albumin/Globulin Ratio 0.9 (1.0-2.1) L 03/26/17 14:14 Triglycerides 73 mg/dL (0-149) 03/23/17 06:18 Cholesterol 180 mg/dL (0-199) 03/23/17 06:18 LDL Cholesterol Direct 94 mg/dL (0-129) 03/23/17 06:18 HDL Cholesterol 54 mg/dL (30-70) 03/23/17 06:18 Lipase 55 U/L (23-300) 03/22/17 12:00 Free T4 1.04 ng/dL (0.78-2.19) 03/23/17 06:18 TSH 3rd Generation 3.76 mIU/L (0.46-4.68) 03/23/17 06:18 Arterial Blood Potassium 0.9 mmol/L (3.6-5.2) L* 03/22/17 11:59 Attending/Attestation - Attestation I have personally seen and examined this patient.: Yes I have fully participated in the care of the patient.: Yes I have reviewed all pertinent clinical information, including history, physical exam and plan: Yes Notes (Text): 03/27/17 10:27 Patient was seen and examined at bedside with the resident at Center patient is feeling much better and she denies any shortness of breath Patient's labs noted. Creatinine is trending down She will be discharged to home She'll follow with the primary medical doctor with the compliance coordinator as outpatient I agree with the discharge note by the resident
== END 2017-03-26 16:30 | disposition home or self-care (01) | DRG 293 ==
LOC: C.ER 11:19 → C.9E 13:24 → C.6T 18:07
PROVIDERS: ADMIT Hospitalist; ATTEND Hospitalist
PROC: 5A09357 Assistance with Respiratory Ventilation, Less than 24 Consecutive Hours, Continuous Positive Airway Pressure (ICD-10-PCS; principal; 2017-03-22)
DX: I11.0 Hypertensive heart disease with heart failure (principal); R06.00 Dyspnea, unspecified; E11.9 Type 2 diabetes mellitus without complications; E05.90 Thyrotoxicosis, unspecified without thyrotoxic crisis or storm; I42.0 Dilated cardiomyopathy; I50.23 Acute on chronic systolic (congestive) heart failure; R19.02 Left upper quadrant abdominal swelling, mass and lump; Z79.4 Long term (current) use of insulin; Z95.810 Presence of automatic (implantable) cardiac defibrillator